=== PATIENT | female | born 1960 | race Caucasian/White ===

== ENCOUNTER 2023-03-10 01:05 | Day surgery (SDC) | payer OTHER, SELFPAY ==
[2023-03-01 13:07] VITALS: BMI 29.0
--- NOTE | 2023-03-01 13:08 | PC.NURSE ---
Report to the Outpatient Waiting Room, entrance under the green pavilion located off [facility], at time _1030_ on date 03-10-2023_. Planned Procedure Time: _1230_. Time changes happen often and if your time is changed the preop area will call you the afternoon before. - You and your visitor will be asked to self-screen and do not enter if you have any COVID symptoms. - A mask is optional within the hospital at this time. Patients may have clear liquids (water, carbonated beverages, clear teas, apple juice) until 3 hours prior to surgery with a maximum of 20 ounces. - No food from midnight until time of surgery Take the following medications with a SIP of water the morning of surgery: ___None DO NOT STOP ANY OF YOUR OTHER PRESCRIPTION MEDICATIONS PRIOR TO SURGERY ?EXCEPT THE FOLLOWING Medications to discontinue per physician None Date to take last dose Please no make-up, nail lao, hairspray, perfume, deodorant, or body powder the day of surgery. No jewelry (including any body piercings) or valuables the day of surgery, leave them at home. Please take a shower or bath the night before, or the morning of, surgery with an antibacterial soap. Wear comfortable, loose fitting clothing. - Jewelry must be removed prior to entering the operating room. Rings and piercings that are not removed may be cut off. - The hospital will not accept responsibility for valuables. - Please leave all valuables, including medications, at home the day of surgery. If you are going home after surgery, a licensed p d driver must drive you home. - NO public transportation without another adult if you receive anesthesia. - We recommend that an adult stay with you for 24 hours following discharge. - We also recommend that you do not drive, make important decision, drink alcoholic beverages, or take any drugs that were not prescribed by your health care provider for at least 24 hours after your discharge time. Follow any additional instructions given to you from your surgeon. If you or anyone in your household have experienced Covid symptoms in the past week, please notify your surgeon or the nurse liaison at the phone number below for possible testing. Telephone instructions given to __Patient___and asked if any additional questions and then verbalized understanding. Patient advised to call surgeon office or pre surgery nurse liaison [phone] if any additional questions.
[2023-03-10] VITALS (8 sets, daily range): BP systolic 119–139; BP diastolic 57–81; PULSE 74–106; RESP 16–18; TEMP 37.6; O2SAT 95–100
[2023-03-10 10:58] LABS: Urine Cotinine NEGATIVE
[2023-03-10] MEDS: LACTATED RINGERS 1,000 ML 30 ML IV CONT ×2 (11:06→14:33)
--- NOTE | 2023-03-10 11:39 | P.PNAN_ITS ---
Anes - Initial Pre Proc Eval Procedure: Operation Date: 03/10/23 12:30 Proposed Procedures p Bilateral Upper Eyelid Blepharoplasty, - Naif Panchal MD s Bilateral Temporal Brow Lift - Naif Panchal MD Date/Time: 03/10/23 11:39 Surgeon: Naif Panchal MD Pre Op Diagnosis: dermatochalasis Patient Data Age: 62 Gender: F Height: 1.68 m Weight: 81.3 kg Last Vital Signs Temp 99.7 F H 03/10/23 10:56 Pulse 74 03/10/23 10:56 Resp 16 03/10/23 10:56 BP 136/81 03/10/23 10:56 Pulse Ox 97 03/10/23 10:56 O2 Del Method Room Air 03/10/23 10:56 Allergies Allergy/AdvReac Type Severity Reaction Status Date / Time Sulfa (Sulfonamide Allergy Severe Hives Verified 03/10/23 10:58 Antibiotics) Home Medications Medication Instructions Recorded Confirmed Type No Home Medications 03/01/23 03/10/23 History Laboratory Tests 03/10/23 10:40 Cotinine Negative Patient hx anesthesia problems: none Family hx anesthesia problems: none Results Review: All pre-operative results and documents have been reviewed as part of the pre- operative evaluation. PMFSH Social History Social History Smoking status: Never smoker Living arrangements: with family Spiritual care concerns: No Anes - Eval Final PreProcedure Day of Procedure 03/10/23 11:39 Patient weight: obese Heart: regular rate and rhythm Lungs: clear to auscultation Airway: Mallampati scale class II Neurological: alert and oriented Last oral intake: >/= 8 hours ASA classification: II Emergent: no Anesthetic plan: proceed Anesthesia type and monitoring: general LMA and standard monitoring Results Review: All pre-operative results and documents have been reviewed as part of the pre- operative evaluation. Informed Consent: The patient's anesthetic plan and its attendant risks and benefits were discussed with the patient/family/POA. Questions were solicited and answers provided to the satisfaction of the patient/family/POA.
--- NOTE | 2023-03-10 12:33 | W.PM.PROC2 ---
Procedure Note - Detailed Date of Procedure 03/10/23 Pre-op Diagnosis dermatochalasis Post-op Diagnosis Same Procedure Performed 1. Bilateral temporal brow lift. 2. Bilateral upper blepharoplasty Surgeon Naif Panchal MD Anesthesia General Description of Procedure Preoperatively risks, benefits, alternatives were discussed in extensive detail. I want them to be very realistic about the risks involved as well as expectations. Discussed what we can and cannot improved. Limitations of this procedure. Alternative procedure as well as adjuvant procedures. This was a lengthy open-ended conversation discussing realistic expectations of outcome. Answered all of their questions to their satisfaction. Consent obtained. Marked in the preoperative holding first marking the temporal brow lift and estimating degree of brow lift to be completed. Also marked along the tarsal crease. While simulating the brow lift A pinch test was completed to william the upper border and pinch test was utilized to verify no lagophthalmos after simulation of skin removal. Taken to the operating room placed supine on the operating room table. Anesthesia provided by anesthesiology. Prepped and draped in a standard sterile fashion. 1% lidocaine and 0.25% Marcaine with epinephrine was used anesthetize locally. A 15 blade was used to make the temporal brow incision. Elevated subcutaneously to the level of the lateral canthus. Verified the amount to be removed, trimmed, and closed with 5-0 Nylon. A 15 blade was used to excise the skin flap. I thin incised the muscle and entered the nasal and middle compartments removing only what was clearly excess adiposity. I verified strict hemostasis throughout. This was closed with 5-0 running subcuticular Prolene secured on each end with steri strips as well as 5-0 fast absorbing plain gut suture. Patient was woken taken the PACU without difficulty. All instrument sponge counts were correct at the end the case. Estimated Blood Loss 5 Drains No Packing No Pathology None sent Complications No immediate complications Condition Stable Disposition PACU
--- NOTE | 2023-03-10 12:56 | WPDHPUPDATE1 ---
History and Physical Update Update Date/Time: 03/10/23 12:56 History and Physical has been reviewed, including an updated exam of the patient. There are NO changes in the patient's condition. Risks, benefits, and alternatives have been discussed and questions answered. Patient agrees to proceed with procedure.
[2023-03-10] MEDS: ceFAZolin 2 GM/D5W 50 ML 2 GM/50 ML BAG IVPB (13:03)
[2023-03-10] MEDS: LIDO 1%/EPINEPHRINE 1:100,000 20 ML VIAL 4 ML INFILTRATE (13:05)
[2023-03-10] MEDS: BUPivacaine HCL 0.25% PF 30 ML VIAL INFILTRATE (13:05)
[2023-03-10] MEDS: TRANEXAMIC ACID 1,000MG/ISO100 1,000 MG/100 ML BAG 200 MG IVPB (13:07)
[2023-03-10] MEDS: TETRACAINE HCL 0.5% OPHTH SOLN 4 ML BTL 1 DROP EACH EYE (14:25)
[2023-03-10] MEDS: NEOMYCIN/POLYMYXIN/BACITRACIN OPHTH OINTMENT 3.5 GM TUBE 1 APPLIC EACH EYE (14:28)
[2023-03-10] MEDS: oxyCODONE HCL (*CRX) 5 MG TAB IR PO (15:40)
== END 2023-03-10 16:23 | disposition home or self-care (01) ==
PROVIDERS: Visit Provider Surgery Plastic and Reconstructive Surgery
PROC: (CPT 15822; principal; 2023-03-10 12:30)
PROC: (CPT 15824; 2023-03-10 12:30)
DX: Z41.1 Encounter for cosmetic surgery (principal); H02.834 Dermatochalasis of left upper eyelid; H02.831 Dermatochalasis of right upper eyelid
CPT/HCPCS: 15822; 15824; 80307; A9270; J0171; J0690; J1100; J2250; J2405; J2704; J3010; J7120; Q9968